=== PATIENT | female | born 1965 | race African-American/Black ===

== ENCOUNTER 2018-05-11 11:25 | Emergency (ER) | payer BC ==
--- NOTE | 2018-05-11 13:05 | RAD ---
2 VIEWS CHEST: Date: 05/11/18 PROVIDED CLINICAL HISTORY: Cough and congestion. FINDINGS: Comparison with 09/07/16. Cardiac silhouette and mediastinal silhouette is within normal limits. Lungs appear clear. No pleural fluid or pneumothorax apparent. IMPRESSION: No evidence for an acute cardiopulmonary process. POS: H
[2018-05-11] MEDS ORDERED: Ibuprofen 200 MG TAB ONE (13:07)
== END 2018-05-11 13:19 | disposition home or self-care (01) ==
LOC: ERS 11:25
DX: J02.9 Acute pharyngitis, unspecified (principal); F17.210 Nicotine dependence, cigarettes, uncomplicated
CPT/HCPCS: 71046; 87081; 87430

== ENCOUNTER 2018-06-27 15:51 | Outpatient (CLI) | payer BC | END 2018-06-27 15:52 | disposition home or self-care (01) | LOC: BICMAMMO 15:51 | PROVIDERS: ATTEND Nurse Practitioner Family | DX: Z12.31 Encounter for screening mammogram for malignant neoplasm of breast (principal); Z80.3 Family history of malignant neoplasm of breast | CPT/HCPCS: 77063; 77067 ==

== ENCOUNTER 2019-04-04 08:02 | Emergency (ER) | payer BC ==
[2019-04-04] MEDS ORDERED: Mag-Al 1200 mg/1200 mg/30 ML UDCUP ONE (08:12)
[2019-04-04] MEDS ORDERED: Lidocaine Viscous Sol 2% 15 ml UD Cup ONE (08:12)
--- NOTE | 2019-04-04 08:42 | RAD ---
XR Chest Pa Lat STANDARD History: [Cough. Body aches.] Comparison: Radiograph April 2018 Findings: Lungs are clear. No pneumothorax or effusion. Cardiac silhouette and mediastinal contours a re within normal limits. Impression: No acute intrathoracic abnormality.
== END 2019-04-04 08:56 | disposition home or self-care (01) ==
LOC: ERS 08:02
DX: J02.9 Acute pharyngitis, unspecified (principal); R07.89 Other chest pain; F17.210 Nicotine dependence, cigarettes, uncomplicated
CPT/HCPCS: 71046

== ENCOUNTER 2022-03-31 08:49 | Emergency (ER) | payer BC ==
[2022-03-31] MEDS ORDERED: diphenhydrAMINE 25 MG CAP ONE (09:08)
== END 2022-03-31 09:24 | disposition home or self-care (01) ==
LOC: ERS 08:49
DX: R21 Rash and other nonspecific skin eruption (principal); F17.210 Nicotine dependence, cigarettes, uncomplicated
CPT/HCPCS: 99282